=== PATIENT | male | born 1970 | race Caucasian/White ===

== ENCOUNTER 2017-02-01 04:27 | Emergency (ER) | payer MEDICAID ==
[~2017-02-01] VITALS: Ht 170.2 cm; Wt 77.2 kg
[2017-02-01] MEDS ORDERED: SIMV20TA3 PO (04:52)
[2017-02-01] MEDS ORDERED: ASPI-496 PO (04:52)
[2017-02-01] MEDS ORDERED: LISI-170 PO (04:52)
[2017-02-01] MEDS ORDERED: AMLO5TAB4 PO (04:52)
[2017-02-01 05:52] LABS: BLOOD UREA NITROGEN 33 mg/dL (7-18)
[2017-02-01 06:00] LABS: IS PT STATUS REG ER OR PRE ER? YES
[2017-02-01 06:52] VITALS: BP 137/67
== END 2017-02-01 06:54 | disposition home or self-care (01) ==
LOC: ED 06:37
DX: R07.89 Other chest pain (principal); I10 Essential (primary) hypertension; Z86.73 Personal history of transient ischemic attack (TIA), and cerebral infarction without residual deficits; Z88.8 Allergy status to other drugs, medicaments and biological substances
CPT/HCPCS: 36415; 71010; 80048; 82040; 83880; 84484; 85025; 93005